=== PATIENT | male | born 2000 | race Caucasian/White ===

== ENCOUNTER 2025-01-08 22:53 | Emergency (ER) | payer BC ==
[~2025-01-08] VITALS: Ht 182.9 cm; Wt 97.1 kg
[2025-01-08 23:13] VITALS: PULSE 79; RESP 18; TEMP 98.8; O2SAT 100
== END 2025-01-09 00:04 | disposition home or self-care (01) ==
LOC: ER 01-09 00:01
DX: H60.91 Unspecified otitis externa, right ear (principal); L40.9 Psoriasis, unspecified
CPT/HCPCS: 99282